=== PATIENT | female | born 1980 | race Asian ===

== ENCOUNTER 2018-10-16 07:07 | Day surgery (SDC) | payer OTHER ==
[~2018-10-16] VITALS: Ht 165.1 cm; Wt 65.8 kg
[2018-10-16] MEDS ORDERED: MIDAZOLAM 2 MG/2 ML VIAL IVP ONE (09:56)
[2018-10-16] MEDS ORDERED: fentaNYL 0.05 MG/ML VIAL ONE (09:59)
[2018-10-16] MEDS ORDERED: LIDOCAINE 2% 100 MG/5 ML UJET TP ONE (09:59)
[2018-10-16] MEDS ORDERED: MIDAZOLAM 2 MG/2 ML VIAL ONE (10:05)
[2018-10-16] MEDS ORDERED: fentaNYL 0.05 MG/ML VIAL IVP ONE (10:12)
== END 2018-10-16 12:40 | disposition home or self-care (01) ==
LOC: MMU 07:07 → MOR 07:07
PROVIDERS: ATTEND Internal Medicine Gastroenterology
DX: K64.8 Other hemorrhoids (principal); K63.89 Other specified diseases of intestine; K62.5 Hemorrhage of anus and rectum; Z98.82 Breast implant status
CPT/HCPCS: 45398; 81025; J2250; J3010

== ENCOUNTER 2021-11-15 10:15 | Day surgery (SDC) | payer OTHER ==
[2021-11-15] MEDS ORDERED: LIDOCAINE/EPI 1% 1:100000 20 ML VIAL INJ ONE (12:04)
[2021-11-15] MEDS ORDERED: BUPIVACAINE-MPF 0.25% 30 ML VIAL INJ ONE (12:04)
[2021-11-15] MEDS ORDERED: PROPOFOL 200 MG/20 ML VIAL IV ONE (12:38)
[2021-11-15] MEDS ORDERED: ROCURONIUM 50 MG/5 ML VIAL IV ONE (12:38)
[2021-11-15] MEDS ORDERED: fentaNYL citrate 0.05 MG/ML VIAL ONE (12:40)
[2021-11-15] MEDS ORDERED: SUGAMMADEX SODIUM 200 MG/2 ML VIAL IV ONE (12:41)
[2021-11-15] MEDS ORDERED: DESFLURANE 240 ML BTL INH ONE (12:47)
[2021-11-15] MEDS ORDERED: ONDANSETRON 4 MG/2 ML VIAL ONE (12:59)
[2021-11-15] MEDS ORDERED: KETOROLAC 30 MG/ML VIAL ONE (12:59)
[2021-11-15] MEDS ORDERED: DEXAMETHASONE 4 MG/ML VIAL ONE (12:59)
[2021-11-15] MEDS ORDERED: HYDROmorphone 1 MG/ML AMP IVP PRN (13:40)
[2021-11-15] MEDS ORDERED: ONDANSETRON 4 MG/2 ML VIAL IVP PRN (13:40)
== END 2021-11-15 15:13 | disposition home or self-care (01) ==
LOC: MDS 10:15 → MMU 10:15 → MDS 15:13
PROVIDERS: ATTEND Surgery
DX: K64.8 Other hemorrhoids (principal); Z20.822 Contact with and (suspected) exposure to COVID-19; Z79.899 Other long term (current) drug therapy
CPT/HCPCS: 46260; 71045; 87426; J1100; J1885; J2001; J2405; J2704; J3010; J3490